=== PATIENT | female | born 1970 | race African-American/Black ===

== ENCOUNTER 2020-11-04 06:11 | Emergency (ER) | payer OTHER ==
[~2020-11-04] VITALS: Ht 167.6 cm; Wt 86.4 kg
[2020-11-04 06:38] VITALS: BP 121/80
[2020-11-04] MEDS ORDERED: DEXAMETHASONE SOD PHOS 4 MG/ML 5 ML VIAL IM ONE (08:45)
[2020-11-04] MEDS ORDERED: DiphenhydrAMINE HCL 50 MG/ML VIAL IM ONE (08:45)
== END 2020-11-04 09:07 | disposition home or self-care (01) ==
LOC: EMS 06:19
DX: L50.9 Urticaria, unspecified (principal)
CPT/HCPCS: 96372; 99284; J1100; J1200